=== PATIENT | male | born 1945 | race Caucasian/White ===

== ENCOUNTER 2022-04-15 19:39 | Emergency (ER) | payer MEDICARE ==
[2022-04-15 19:50] VITALS: BP 95/73; PULSE 104; RESP 16; TEMP 98.6
--- NOTE | 2022-04-15 20:00 | ED ---
Back Pain HPI - General Chief Complaint: Back Pain/Injury Stated Complaint: back pain Time Seen by Provider: 04/15/22 19:47 Source: family, RN notes reviewed Limitations: no limitations - History of Present Illness Initial Comments: This is a pleasant 77-year-old male with a history of dementia. Patient recently moved here from [place] and is now staying at the [facility] assisted living. Patient is a poor historian due to baseline dementia but states that he turned over in bed and felt a pain in his right lower back and right hip area. Patient had a hard time standing. Patient here with family members who gave him extra strength Tylenol prior to arrival. Patient states he is doing better now. Patient was able to ambulate. He is denying any fall. Pain is exacerbated by movement, alleviated by rest. Review of systems Limited due to patient's dementia but he specifically denies any headache, neck pain, chest pain or shortness of breath. No abdominal pain. States she feels well otherwise. MD Complaint: back pain - Related Data Allergies Allergy/AdvReac Type Severity Reaction Status Date / Time No Known Allergies Allergy Verified 04/15/22 20:01 Review of Systems ROS Statement: Those systems with pertinent positive or pertinent negative responses have been documented in the HPI. ROS Other: All systems not noted in ROS Statement are negative. Past Medical History Past Medical History: Dementia Additional Past Medical History / Comment(s): back pain History of Any Multi-Drug Resistant Organisms: None Reported Past Surgical History: Appendectomy, Cholecystectomy, Pacemaker Past Psychological History: No Psychological Hx Reported Smoking Status: Former smoker Past Alcohol Use History: None Reported Past Drug Use History: None Reported General Exam - General Exam Comments Initial Comments: Patient essentially alert and oriented 2. He is disoriented to time and situation to symptoms.In the hospital and believes he still in [place]. Sounds like this is baseline for the patient.. Patient physically deconditioned. Limitations: no limitations General appearance: alert, in no apparent distress Head exam: Present: atraumatic, normocephalic, normal inspection Eye exam: Present: normal appearance, PERRL, EOMI. Absent: scleral icterus, conjunctival injection, periorbital swelling ENT exam: Present: normal exam, normal oropharynx, mucous membranes dry, mucous membranes moist, normal external ear exam Neck exam: Present: normal inspection, full ROM. Absent: tenderness, meningismus, lymphadenopathy Respiratory exam: Present: normal lung sounds bilaterally. Absent: respiratory distress, wheezes, rales, rhonchi, stridor Cardiovascular Exam: Present: regular rate, normal rhythm, normal heart sounds. Absent: systolic murmur, diastolic murmur, rubs, gallop, clicks GI/Abdominal exam: Present: soft, normal bowel sounds. Absent: distended, tenderness, guarding, rebound, rigid Extremities exam: Present: normal inspection, full ROM, normal capillary refill. Absent: tenderness, pedal edema, joint swelling, calf tenderness Back exam: Present: normal inspection, tenderness (Right lumbar paraspinals and right hip area. No erythema. No break in skin integrity.), paraspinal tenderness. Absent: CVA tenderness (L), muscle spasm, vertebral tenderness, rash noted Neurological exam: Present: alert, CN II-XII intact, other (Straight leg raise is negative. Patient does have some pain in the right hip with internal and external rotation. No evidence of vascular insult.). Absent: motor sensory deficit Psychiatric exam: Present: normal affect, normal mood. Absent: anxious, flat affect, manic Skin exam: Present: warm, dry, intact, normal color. Absent: rash Course Vital Signs 04/15/22 19:44 Temperature 98.6 F Pulse Rate 104 H Respiratory 16 Rate Blood Pressure 95/73 O2 Sat by Pulse 94 L Oximetry - Reevaluation(s) Reevaluation #1: 04/15/22 21:27 Medical record is reviewed Symptoms are improved here in the emergency department Patient is informed of results and questions answered Patient in no distress Reevaluation #2: 04/15/22 22:16 Patient doing well. Able to ambulate without difficulty. Medical Decision Making - Medical Decision Making Patient's right low back pain and right hip pain appears to be musculoskeletal in origin. This is reproducible with movement and palpation. There appears to be well otherwise. Patient is severely deconditioned. No evidence of trauma. There is no acute fracture noted on computed tomography scan. Patient was able to ambulate without difficulty. We will send the patient back to the assisted living facility. I did give the patient follow-up with orthopedics. Discussed all findings with the family and the patient. 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 Pain is adequately controlled at this time with Tylenol. Patient was told to return to the ER for any signs or symptoms worsen. Told to return immediately if any other problems arise. All questions answered. Treatment plan discussed. Patient in agreement Every effort has been made to ensure accuracy of this dictation. However, due to the limitations of electronic medical records and dictation devices, errors in charting still occur. Released with family in stable condition. Same was normal. Supervising physician Dr. Duran - Lab Data Result diagrams: 04/15/22 20:10 04/15/22 21:16 Lab Results 04/15/22 04/15/22 04/15/22 Range/Units 20:10 20:10 21:16 WBC 8.8 (3.8-10.6) k/uL RBC 4.64 (4.30-5.90) m/uL Hgb 14.9 (13.0-17.5) gm/dL Hct 43.3 (39.0-53.0) % MCV 93.3 (80.0-100.0) fL MCH 32.0 (25.0-35.0) pg MCHC 34.3 (31.0-37.0) g/dL RDW 12.4 (11.5-15.5) % Plt Count 218 (150-450) k/uL MPV 7.8 Neutrophils % 87 % Lymphocytes % 3 % Monocytes % 6 % Eosinophils % 1 % Basophils % 1 % Neutrophils # 7.7 (1.3-7.7) k/uL Lymphocytes # 0.3 L (1.0-4.8) k/uL Monocytes # 0.6 (0-1.0) k/uL Eosinophils # 0.1 (0-0.7) k/uL Basophils # 0.1 (0-0.2) k/uL Sodium 134 L (137-145) mmol/L Potassium 5.8 H 4.4 (3.5-5.1) mmol/L Chloride 101 (98-107) mmol/L Carbon Dioxide 23 (22-30) mmol/L Anion Gap 10 mmol/L BUN 18 (9-20) mg/dL Creatinine 0.95 (0.66-1.25) mg/dL Est GFR (CKD-EPI)AfAm >90 (>60 ml/min/1.73 sqM) Est GFR (CKD-EPI)NonAf 78 (>60 ml/min/1.73 sqM) Glucose 157 H (74-99) mg/dL Calcium 8.9 (8.4-10.2) mg/dL Total Bilirubin 1.6 H (0.2-1.3) mg/dL AST 68 H (17-59) U/L ALT 29 (4-49) U/L Alkaline Phosphatase 87 (38-126) U/L Total Protein 8.1 (6.3-8.2) g/dL Albumin 4.6 (3.5-5.0) g/dL - Radiology Data Radiology results: report reviewed, image reviewed Computed tomography scan of the lumbar spine and pelvis interpreted by me reveal s extensive degenerative changes with no acute findings. Current radiology report Disposition Clinical Impression: Arthralgia of right hip, DJD (degenerative joint disease), lumbar Disposition: HOME SELF-CARE Condition: Good Instructions (If sedation given, give patient instructions): Acute Low Back Pain (ED), Hip Pain (ED) Additional Instructions: Make an appointment with the orthopedic physician. He can call him again tomorrow morning for an appointment. Tylenol 500 mg every 4-6 hours as needed for pain control. Follow-up with your regular physician as directed. Return to the ER immediately if any symptoms worsen, new symptoms arise, or any other problems develop. Is patient prescribed a controlled substance at d/c from ED?: No Referrals: Arminda Mojica DO [Doctor of Osteopathic Medicine] - 04/17/22 Time of Disposition: 22:15
[2022-04-15 20:25] LABS: Basophils # (A) 0.1 k/uL (0-0.2); Basophils % (A) 1 %; Eosinophils # (A) 0.1 k/uL (0-0.7); Eosinophils % (A) 1 %; HCT 43.3 % (39.0-53.0); HGB 14.9 gm/dL (13.0-17.5); Lymphocytes # (A) 0.3 k/uL (1.0-4.8); Lymphocytes % (A) 3 %; MCHC 34.3 g/dL (31.0-37.0); MCV 93.3 fL (80.0-100.0); Mean Platelet Volume 7.8; Monocytes # (A) 0.6 k/uL (0-1.0); Monocytes % (A) 6 %; Neutrophils # (A) 7.7 k/uL (1.3-7.7); Neutrophils % (A) 87 %; Platelet Count 218 k/uL (150-450); RBC 4.64 m/uL (4.30-5.90); RDW 12.4 % (11.5-15.5); WBC 8.8 k/uL (3.8-10.6)
[2022-04-15 20:35] LABS: ALT 29 U/L (4-49); AST 68 U/L (17-59); African American GFR (CKD) >90 (>60 ml/min/1.73 sqM); Albumin 4.6 g/dL (3.5-5.0); Alkaline Phosphatase 87 U/L (38-126); Anion Gap 10 mmol/L; Blood Urea Nitrogen 18 mg/dL (9-20); Calcium 8.9 mg/dL (8.4-10.2); Carbon Dioxide 23 mmol/L (22-30); Chloride 101 mmol/L (98-107); Glucose 157 mg/dL (74-99); Non-African American GFR(CKD) 78 (>60 ml/min/1.73 sqM); Sodium 134 mmol/L (137-145); Total Bilirubin 1.6 mg/dL (0.2-1.3); Total Protein 8.1 g/dL (6.3-8.2)
[2022-04-15 20:48] LABS: Potassium 5.8 mmol/L (3.5-5.1)
--- NOTE | 2022-04-15 21:06 | CT ---
EXAMINATION TYPE: CT pelvis wo con CT DLP: 2994.9 mGycm, Automated exposure control for dose reduction was used. DATE OF EXAM: 04/15/2022 8:45 PM COMPARISON: None CLINICAL INDICATION:Male, 77 years old with history of Right hip pain. TECHNIQUE: Axial CT of the pelvis. Sagittal and coronal reformats were created on a separate worksta tion. Contrast used: None Oral contrast used: without Oral Contrast FINDINGS: BLADDER: Unremarkable REPRODUCTIVE: Unremarkable. STOMACH AND BOWEL: No evidence of bowel obstruction. Scattered clonic diverticula present. PERITONEUM: No evidence of pneumoperitoneum or free fluid. VASCULATURE: No evidence of aortic aneurysm. MUSCULOSKELETAL: Osteophyte formation of the femoral head and acetabulum bilaterally. Degeneration ch anges of the lower lumbar spine. No evidence of fracture. There is [id number] articulation of the right hip with subchondral cystic changes and sclerosis most pronounced posteriorly.. LYMPH NODES: No gross evidence for lymphadenopathy. SOFT TISSUE/ABDOMINAL WALL: There is large right and small left fat containing inguinal hernia. IMPRESSION: 1. No evidence of fracture. 2. End-stage right hip osteoarthrosis. 3. Bilateral fat containing inguinal hernia, right greater than left. 4. Clonic diverticulosis. 5. Multilevel disc degeneration changes.
--- NOTE | 2022-04-15 21:11 | CT ---
EXAMINATION TYPE: CT lumbar spine wo con CT DLP: 2994.9 mGycm, Automated exposure control for dose reduction was used. DATE OF EXAM: 04/15/2022 8:45 PM COMPARISON: none. CLINICAL INDICATION:Male, 77 years old with history of Right low back pain; , Right side low back mary n TECHNIQUE: Multiple axial images were obtained from the midportion of T11 through the sacroiliac ninoska nts. Soft tissue and bone windows in coronal and sagittal planes were obtained and reviewed. Contrast used: none. Oral contrast used: none. FINDINGS: Alignment: There are 5 lumbar type vertebral bodies. There is dextroscoliosis apex L3-L4. Bone: Multilevel disc degeneration changes are seen throughout the spine with large osteophytes and d isc space narrowing, subchondral cystic changes and sclerosis. Discs: T12-L1: No spinal canal or neural foraminal stenosis is identified. L1-L2: No spinal canal. Facet joint arthropathy of mild neural foraminal stenosis. L2-L3: Disc bulge with facet joint arthropathy with mild spinal canal stenosis and mild neural foraminal stenosis. L3-L4: Disc bulge with facet joint arthropathy with mild spinal canal stenosis and moderate neural fo raminal stenosis. L4-L5: Disc bulge with facet joint arthropathy with mild spinal canal stenosis and mild to moderate neural foraminal stenosis. L5-S1: Osteophytes with disc material and facet joint arthropathy with mild spinal canal stenosis and moderate right and mild left neural foraminal stenosis. Other: Atherosclerosis of the arterial vasculature. Scattered clonic diverticula. Bilateral renal cys ts. IMPRESSION: 1. No evidence of fracture of the lumbar spine. 2. Severe degeneration changes of the spine with multilevel at least mild spinal canal stenosis and m oderate neural foraminal stenosis most pronounced at L3-L4 on the left and L5-S1 on the right.
== END 2022-04-15 22:55 | disposition home or self-care (01) ==
LOC: EC 19:39
DX: M47.896 Other spondylosis, lumbar region (principal); Z87.891 Personal history of nicotine dependence
CPT/HCPCS: 36415; 72131; 72192; 80053; 84132; 85025; 99284

== ENCOUNTER 2023-03-11 02:44 | Emergency (ER) | payer MEDICARE ==
[2023-03-11 02:56] VITALS: RESP 18; TEMP 98.7
--- NOTE | 2023-03-11 03:13 | ED ---
General Adult HPI - General Chief complaint: Chest Pain Stated complaint: Chest Pain Time Seen by Provider: 03/11/23 02:50 Source: patient, EMS, RN notes reviewed, old records reviewed Mode of arrival: EMS Limitations: altered mental status - History of Present Illness Initial comments: 77-year-old male history of dementia had presented for evaluation of chest pain. Apparently the patient had complained of chest pain while at the [place] [facility] this had resolved during initial EMS transport. Patient denies chest pain at the time my evaluation, he has no complaints. Patient is likely a very poor historian. - Related Data Allergies Allergy/AdvReac Type Severity Reaction Status Date / Time No Known Allergies Allergy Verified 04/15/22 20:01 Review of Systems ROS Statement: Those systems with pertinent positive or pertinent negative responses have been documented in the HPI. ROS Other: All systems not noted in ROS Statement are negative. Past Medical History Past Medical History: Dementia Additional Past Medical History / Comment(s): back pain History of Any Multi-Drug Resistant Organisms: None Reported Past Surgical History: Appendectomy, Cholecystectomy, Pacemaker Past Psychological History: No Psychological Hx Reported Smoking Status: Former smoker Past Alcohol Use History: None Reported Past Drug Use History: None Reported General Exam General appearance: alert, in no apparent distress Head exam: Present: atraumatic, normocephalic Eye exam: Present: normal appearance, PERRL ENT exam: Present: normal exam Neck exam: Present: normal inspection. Absent: tenderness, meningismus Respiratory exam: Present: normal lung sounds bilaterally. Absent: respiratory distress, wheezes Cardiovascular Exam: Present: regular rate, normal rhythm GI/Abdominal exam: Present: soft. Absent: distended, tenderness, guarding, rebound Extremities exam: Present: normal inspection, normal capillary refill. Absent: pedal edema Neurological exam: Present: alert, oriented X3, CN II-XII intact. Absent: motor sensory deficit Psychiatric exam: Present: normal affect, normal mood Skin exam: Present: warm, dry, intact. Absent: cyanosis, diaphoretic Course Vital Signs 03/11/23 02:46 Temperature 98.7 F Pulse Rate 63 Respiratory 18 Rate Blood Pressure 141/75 O2 Sat by Pulse 96 Oximetry Medical Decision Making - Medical Decision Making Was pt. sent in by a medical professional or institution (, PA, SHIRRING TENDER, urgent care, hospital, or [place] [facility]...) When possible be specific @ -No Did you speak to anyone other than the patient for history (EMS, parent, family, police, friend...)? What history was obtained from this source @ -Patient's son who is at bedside Did you review nursing and triage notes (agree or disagree)? Why? @ -I reviewed and agree with nursing and triage notes Were old charts reviewed (outside hosp., previous admission, EMS record, old EKG, old radiological studies, urgent care reports/EKG's, [place] [facility] records)? Report findings @ -No old charts were reviewed Differential Diagnosis (chest pain, altered mental status, abdominal pain women, abdominal pain men, vaginal bleeding, weakness, fever, dyspnea, syncope, headache, dizziness, GI bleed, back pain, seizure, CVA, palpatations, mental health, musculoskeletal)? @ Differential Chest Pain: Stable Angina, Unstable Angina, STEMI, NSTEMI Aortic Dissection, Pneumothorax, Musculoskeletal, Esophageal Spasm GERD, Cholecystitis, Pancreatitis, Zoster, this is not meant to be an all-inclusive list. EKG interpreted by me (3pts min.). @Sinus rhythm rate of 67, WA interval 193, QRS duration 98, QTC 432, no ST segment elevation. X-rays interpreted by me (1pt min.). @ -Low lung volumes, left pleural effusion. Interpreted as infiltrate however patient has no fever, no cough, no dyspnea, no normal white blood cell count. CT interpreted by me (1pt min.). @ -None done U/S interpreted by me (1pt. min.). @ -None done What testing was considered but not performed or refused? (CT, X-rays, U/S, labs)? Why? @ -None What meds were considered but not given or refused? Why? @ -None Did you discuss the management of the patient with other professionals ( professionals i.e. , PA, SHIRRING TENDER, lab, RT, psych nurse, manager social, rail transportation tabeler, teacher, ordnance officer, casework manager)? Give summary @ -No Was smoking cessation discussed for >3mins.? @ -No Was critical care preformed (if so, how long)? @ -No Were there social determinants of health that impacted care today? How? (Homelessness, low income, unemployed, alcoholism, drug addiction, transpo rtation, low edu. Level, literacy, decrease access to med. care, [facility], rehab)? @ -No Was there de-escalation of care discussed even if they declined (Discuss DNR or withdrawal of care, Hospice)? DNR status @ -No What co-morbidities impacted this encounter? (DM, HTN, Smoking, COPD, CAD, Cancer, CVA, ARF, Chemo, Hep., AIDS, mental health diagnosis, sleep apnea, morbid obesity)? @Mack Was patient admitted / discharged? Hospital course, mention meds given and route, prescriptions, significant lab abnormalities, going to OR and other pertinent info. @ -77 yo male who presented with an episode of chest pain. Patient does not recall this and is unable to characterize the pain. He has no further pain at the time my evaluation or while he is in the emergency department. EKG is sinus without ST segment elevation. He has a normal CBC, normal CMP, negative tropo maryam. I do feel this patient is stable for discharge with return parameters. He will return to the [place] [facility]. Undiagnosed new problem with uncertain prognosis? @ -No Drug Therapy requiring intensive monitoring for toxicity (Heparin, Nitro, Insulin, Cardizem)? @ -No Were any procedures done? @ -No Diagnosis/symptom? @ -[Chest pain, resolved Acute, or Chronic, or Acute on Chronic? @ -[Acute Uncomplicated (without systemic symptoms) or Complicated (systemic symptoms)? @ -[Complicated Side effects of treatment? @ -No Exacerbation, Progression, or Severe Exacerbation? @ -No Poses a threat to life or bodily function? How? (Chest pain, USA, NM, pneumonia, PE, COPD, DKA, ARF, appy, cholecystitis, CVA, Diverticulitis, Homicidal, Suicidal, threat to staff... and all critical care pts) @ -[Yes, chest pain - Lab Data Result diagrams: 03/11/23 02:55 03/11/23 02:55 Lab Results 03/11/23 03/11/23 03/11/23 Range/Units 02:55 02:55 02:55 WBC 7.0 (3.8-10.6) k/uL RBC 4.28 L (4.30-5.90) m/uL Hgb 13.6 (13.0-17.5) gm/dL Hct 41.7 (39.0-53.0) % MCV 97.3 (80.0-100.0) fL MCH 31.8 (25.0-35.0) pg MCHC 32.7 (31.0-37.0) g/dL RDW 14.1 (11.5-15.5) % Plt Count 163 (150-450) k/uL MPV 8.5 Neutrophils % 69 % Lymphocytes % 17 % Monocytes % 6 % Eosinophils % 5 % Basophils % 0 % Neutrophils # 4.9 (1.3-7.7) k/uL Lymphocytes # 1.2 (1.0-4.8) k/uL Monocytes # 0.4 (0-1.0) k/uL Eosinophils # 0.4 (0-0.7) k/uL Basophils # 0.0 (0-0.2) k/uL PT 10.9 (10.0-12.5) sec INR 1.0 (<1.2) APTT 24.8 (22.0-30.0) sec Sodium 136 L (137-145) mmol/L Potassium 3.9 (3.5-5.1) mmol/L Chloride 102 (98-107) mmol/L Carbon Dioxide 22 (22-30) mmol/L Anion Gap 12 mmol/L BUN 16 (9-20) mg/dL Creatinine 0.59 L (0.66-1.25) mg/dL Est GFR (CKD-EPI)AfAm >90 (>60 ml/min/1.73 sqM) Est GFR (CKD-EPI)NonAf >90 (>60 ml/min/1.73 sqM) Glucose 98 (74-99) mg/dL Calcium 8.9 (8.4-10.2) mg/dL Magnesium 1.5 L (1.6-2.3) mg/dL Total Bilirubin 1.3 (0.2-1.3) mg/dL AST 25 (17-59) U/L ALT 16 (4-49) U/L Alkaline Phosphatase 59 (38-126) U/L Troponin I (0.000-0.034) ng/mL Total Protein 6.7 (6.3-8.2) g/dL Albumin 3.7 (3.5-5.0) g/dL Lipase 72 (23-300) U/L 03/11/23 Range/Units 02:55 WBC (3.8-10.6) k/uL RBC (4.30-5.90) m/uL Hgb (13.0-17.5) gm/dL Hct (39.0-53.0) % MCV (80.0-100.0) fL MCH (25.0-35.0) pg MCHC (31.0-37.0) g/dL RDW (11.5-15.5) % Plt Count (150-450) k/uL MPV Neutrophils % % Lymphocytes % % Monocytes % % Eosinophils % % Basophils % % Neutrophils # (1.3-7.7) k/uL Lymphocytes # (1.0-4.8) k/uL Monocytes # (0-1.0) k/uL Eosinophils # (0-0.7) k/uL Basophils # (0-0.2) k/uL PT (10.0-12.5) sec INR (<1.2) APTT (22.0-30.0) sec Sodium (137-145) mmol/L Potassium (3.5-5.1) mmol/L Chloride (98-107) mmol/L Carbon Dioxide (22-30) mmol/L Anion Gap mmol/L BUN (9-20) mg/dL Creatinine (0.66-1.25) mg/dL Est GFR (CKD-EPI)AfAm (>60 ml/min/1.73 sqM) Est GFR (CKD-EPI)NonAf (>60 ml/min/1.73 sqM) Glucose (74-99) mg/dL Calcium (8.4-10.2) mg/dL Magnesium (1.6-2.3) mg/dL Total Bilirubin (0.2-1.3) mg/dL AST (17-59) U/L ALT (4-49) U/L Alkaline Phosphatase (38-126) U/L Troponin I <0.012 (0.000-0.034) ng/mL Total Protein (6.3-8.2) g/dL Albumin (3.5-5.0) g/dL Lipase (23-300) U/L Disposition Clinical Impression: Chest pain Disposition: HOME SELF-CARE Condition: Fair Instructions (If sedation given, give patient instructions): Chest Pain (ED) Is patient prescribed a controlled substance at d/c from ED?: No Referrals: None,Stated [REFERRING] - 1-2 days Time of Disposition: 04:30
[2023-03-11 03:25] LABS: Basophils % (A) 0 %; Eosinophils # (A) 0.4 k/uL (0-0.7); Eosinophils % (A) 5 %; HCT 41.7 % (39.0-53.0); HGB 13.6 gm/dL (13.0-17.5); Lymphocytes # (A) 1.2 k/uL (1.0-4.8); Lymphocytes % (A) 17 %; MCH 31.8 pg (25.0-35.0); MCHC 32.7 g/dL (31.0-37.0); MCV 97.3 fL (80.0-100.0); Mean Platelet Volume 8.5; Monocytes # (A) 0.4 k/uL (0-1.0); Monocytes % (A) 6 %; Neutrophils # (A) 4.9 k/uL (1.3-7.7); Neutrophils % (A) 69 %; Platelet Count 163 k/uL (150-450); RBC 4.28 m/uL (4.30-5.90); RDW 14.1 % (11.5-15.5)
[2023-03-11 03:35] LABS: Prothrombin Time 10.9 sec (10.0-12.5)
[2023-03-11 03:36] LABS: Partial Thromboplastin Time 24.8 sec (22.0-30.0)
[2023-03-11 04:05] LABS: ALT 16 U/L (4-49); AST 25 U/L (17-59); African American GFR (CKD) >90 (>60 ml/min/1.73 sqM); Albumin 3.7 g/dL (3.5-5.0); Alkaline Phosphatase 59 U/L (38-126); Anion Gap 12 mmol/L; Blood Urea Nitrogen 16 mg/dL (9-20); Calcium 8.9 mg/dL (8.4-10.2); Carbon Dioxide 22 mmol/L (22-30); Chloride 102 mmol/L (98-107); Glucose 98 mg/dL (74-99); Lipase 72 U/L (23-300); Magnesium 1.5 mg/dL (1.6-2.3); Non-African American GFR(CKD) >90 (>60 ml/min/1.73 sqM); Potassium 3.9 mmol/L (3.5-5.1); Sodium 136 mmol/L (137-145); Total Bilirubin 1.3 mg/dL (0.2-1.3); Total Protein 6.7 g/dL (6.3-8.2)
[2023-03-11] MEDS ORDERED: MAGNESIUM SULFATE-D5W PMX 1 GM in DEXTROSE/WATER 1 100ML.BAG IVPB ONE (04:11)
--- NOTE | 2023-03-11 04:48 | XR ---
EXAM: XR Chest, 1 View CLINICAL HISTORY: Pain TECHNIQUE: Frontal view of the chest. COMPARISON: No relevant prior studies available. FINDINGS: Left subclavian pacemaker. Heart is enlarged. Diffuse interstitial prominence compatible with CHF. Focal dense consolidation in the left lung base. Probable left pleural effusion. No pneumothorax. Bones are unremarkable IMPRESSION: Cardiomegaly. CHF. Left pleural effusion. Dense left basilar infiltrate/pneumonia.
[2023-03-11 06:02] VITALS: BP 156/80; PULSE 61
== END 2023-03-11 05:45 | disposition home or self-care (01) ==
LOC: EC 02:44 → EEVIPCON 02:44 → EC 05:45
DX: J90 Pleural effusion, not elsewhere classified (principal); F03.90 Unspecified dementia, unspecified severity, without behavioral disturbance, psychotic disturbance, mood disturbance, and anxiety; Z90.49 Acquired absence of other specified parts of digestive tract; Z87.891 Personal history of nicotine dependence
CPT/HCPCS: 36415; 93005; 80053; 83690; 83735; 84484; 85025; 85610; 85730; 71045; 99285; 96365; J3475